=== PATIENT | female | born 1995 | race Caucasian/White ===

== ENCOUNTER 2018-04-10 16:09 | Emergency (ER) | payer BC ==
[~2018-04-10] VITALS: Ht 167.6 cm; Wt 79.5 kg
[2018-04-10] MEDS ORDERED: DEPOP150I IM (16:21)
[2018-04-10] MEDS ORDERED: PredniSONE 20 MG TABLET PO ONE (18:00)
[2018-04-10] MEDS ORDERED: DiphenhydrAMINE HCL 25 MG CAPSULE PO ONE (18:00)
[2018-04-10] MEDS ORDERED: FAMOTIDINE 20 MG TABLET PO ONE (18:00)
[2018-04-10 19:06] VITALS: BP 134/87
== END 2018-04-10 19:09 | disposition home or self-care (01) ==
LOC: EMS 16:10
DX: T50.995A Adverse effect of other drugs, medicaments and biological substances, initial encounter (principal); R03.0 Elevated blood-pressure reading, without diagnosis of hypertension; Y92.89 Other specified places as the place of occurrence of the external cause
CPT/HCPCS: 99284; J7512